=== PATIENT | female | born 1955 | race Caucasian/White ===

== ENCOUNTER 2021-11-06 08:43 | Emergency (ER) | payer MEDICARE, BC, SELFPAY ==
[2021-11-06 08:44] VITALS: BP 137/95; PULSE 111; RESP 20; TEMP 36.1; O2SAT 97; BMI 48.5
--- NOTE | 2021-11-06 09:00 | RAD_ITS ---
STUDY: X-RAY CHEST REASON FOR EXAM: Female, 66 years old. Rales right base and pleuritic pain TECHNIQUE: Single AP portable view of the chest. COMPARISON: None. FINDINGS: The lungs are clear and expanded. There is no demonstrated pleural abnormality. Normal size heart. Normal mediastinum and jessica. Normal visualized pulmonary arteries. Normal visualized aortic arch and descending thoracic aorta. Normal visualized thoracic spine. Normal visualized ribs, clavicles, and shoulders. There is no demonstrated abnormality of the visualized soft tissue structures of the upper abdomen. RAD/Chest 1 View (Portable) IMPRESSION: Normal x-ray examination of the chest. Electronically Signed: Andres Mora MD at 9:49 EST Tel , Service support ,
--- NOTE | 2021-11-06 09:00 | EKG12_ITS ---
Test Reason : R SIDEPAIN Blood Pressure : / mmHG Vent. Rate : 094 BPM Atrial Rate : 094 BPM P-R Int : 140 ms QRS Dur : 080 ms QT Int : 342 ms P-R-T Axes : 003 -28 -23 degrees QTc Int : 427 ms Normal sinus rhythm Left ventricular hypertrophy Nonspecific ST and T wave abnormality Abnormal ECG Confirmed by MARIA ELENA DIAMOND, SG ([id number]), metropolitan editor MARYSOL SINCLAIR ([id number]) on 11/08/2021 10:47:31 A M Referred By: JOSE Confirmed By:ERIC ARREDONDO MD
[2021-11-06 09:02] VITALS: PULSE 93; RESP 16; O2SAT 97
--- NOTE | 2021-11-06 09:02 | EX.ED.DYSGE1 ---
HPI History of Present Illness Chief Complaint: Other, Pain/Inj Detail of Chief Complaint: Right-sided pleuritic pain Informant: patient and spouse/S.O. Onset/Context/Timing Onset: Days (Onset 2 to 3 days ago) Context: Sudden Onset Timing: Continuous and Waxes and wanes Quality: Pain with breathing Location: Right costal margin midclavicular line to posterior axillary line Current Severity: Mild Maximum Severity: Moderate Worsened by: Breathing Relieved by: Nothing Associated Symptoms Associated Symptoms: Nothing Narrative Narrative: Patient is a 66-year-old woman who has not seen a physician in some time. Her BMI is 48.6. She does endorse intolerance to greasy and fried foods. She has had no abdominal surgery. She has no known medical problems. She denies history of VTE. She has no risk factors for VTE. She states has been immunized against influenza but not COVID-19. Patient states her symptoms started 2 to 3 days ago. She has pain which she localizes from the posterior axillary line to the mid anterior clavicular line. Pain is worse with breathing or movement. She denies cough. She denies rhinorrhea, congestion or postnasal drainage. Denies sore throat. Denies loss of taste or smell. She denies headache. She denies rash. There is no history of trauma. She denies dysuria, frequency, urgency or hematuria. She does report shortness of breath with walking and attributed to her weight. She states that is not a new symptom. Prior similar symptoms: No Recent Illness/Hospitalization: No PFSH PFSH Medical History (Updated 11/06/21 @ 11:[address] Mode Shields MD) Asthma Hypertension Medical History no medical history no medical history Home Medications rivaroxaban [Xarelto] 15 mg PO BID #42 tablet 11/06/21 [Rx Last Taken Unknown] rivaroxaban [Xarelto] 20 mg PO DAILY #30 tab 11/06/21 [Rx Last Taken Unknown] Allergy/AdvReac Type Severity Reaction Status Date / Time No Known Allergies Allergy Verified 11/06/21 08:46 Surgical History (Updated 11/06/21 @ 09:06 by Flora Mack) Hx of tubal ligation Surgical History no surgical history no surgical history (foot surgery for calcification) Social History household members: spouse Smoking Status: Never smoker alcohol intake: never substance use type: does not use ROS ROS ED Constitutional Constitutional ED: Denies chills, fever(s), subjective, sweats or weight loss Eyes Eyes: Denies blurry vision, change in vision or diplopia ENT ENT ED: Denies ear pain, rhinorrhea or sore throat Cardiovascular Cardiovascular: Denies chest pain, orthopnea, palpitations, paroxysmal nocturnal dyspnea or racing heartbeat Respiratory/Chest Respiratory/Chest: Reports dyspnea on exertion; Denies cough, dyspnea, orthopnea, paroxysmal nocturnal dyspnea or sputum Gastrointestinal Gastrointestinal: Reports abdominal pain; Denies constipation, diarrhea, melena, nausea or vomiting Genitourinary Genitourinary ED: Denies dysuria, hematuria or urinary frequency Musculoskeletal Musculoskeletal: Reports back pain; Denies arthralgias, myalgias or neck pain Neurologic Neurologic: Denies headache(s) or weakness Endocrine Endocrinology: Denies polydipsia, polyphagia or polyuria Hematologic/Lymphatic Hematologic/Lymphatic: Denies easy bruising EXAM Physical Exam Const Vital Signs: 11/06/21 08:44 11/06/21 09:02 Temperature 97.0 F L Temperature Source Temporal Pulse Rate 111 H 93 Respiratory Rate 20 H 16 Respiratory Effort Normal Non-Labored Respiratory Pattern Normal Blood Pressure 137/95 H Blood Pressure Mean 109 Pulse Ox 97 97 Oxygen Delivery Method Room Air Room Air Positive well nourished, well developed and obese General Appearance ED: well developed and other Patient appears uncomfortable and winces with deep breathing. She is tachypneic and moderate reveals tachycardia. ; Negative for cyanotic, diaphoretic, NAD or pallor Nutritional Appearance: obese HEENT Reports TM's clear and moist mucous membranes HEENT Narrative: Nares patent. Ears are normal. Negative for trauma or tenderness Tympanic Membrane ED: Yes TM's clear Eyes PERRL and EOMs intact bilaterally General Eye ED: Negative for pale conjunctiva or scleral icterus Neck no lymphadenopathy, supple and no JVD Neck Narrative: Trachea is midline. There is no inspiratory expiratory stridor. General: Negative for tenderness Chest Wall palpation of chest normal Resp No normal respiratory effort and No clear to auscultation bilaterally Effort and Inspection: pain with movement Auscultation: rales right lower Cardio regular rhythm, S1 normal heart sound, S2 normal heart sound and no murmurs Rate: tachycardic GI normal to inspection, nondistended, normoactive bowel sounds, non-tender and non-distended; Negative for hepatosplenomegaly Palpation: soft Back/Spine no CVA tenderness Thoracic Spine / Upper Back: Negative for thoracic spinal tenderness or paraspinal muscle tenderness Extremity normal to inspection Neuro CN's II-XII intact bilaterally Sensorium / Orientation: alert Psych mental status grossly normal Skin no rashes or lesions noted and no wounds General Skin Exam: Negative for jaundice or pallor MDM MDM MDM Narrative Medical decision making narrative: With pleuritic pain tachycardia tachypnea need to rule out pneumonia versus pulmonary embolus versus pleurisy from viral infection. Work-up included EKG to determine if there is evidence of right heart strain. Chest x-ray to rule out pneumonia. Appropriate blood work to assess liver function and lipase and she reports slashes endorses intolerance to greasy and fried foods. Location is not consistent with ureteral obstructing stone. Will medicate with Zofran and morphine. Lab Data Attestation: I reviewed the patient's lab results. Lab results narrative: CBC and differential are unremarkable. Renal function is normal. Patient has an elevated D-dimer with low to moderate pretest probability and a normal chest x-ray. Therefore CTA was obtained to rule out PE. Labs: Laboratory Results - last 24 hr 11/06/21 11/06/21 11/06/21 09:47 09:47 09:47 WBC 10.9 RBC 4.73 Hgb 14.5 Hct 44.0 MCV 93.0 MCH 30.7 MCHC 33.0 RDW Std Deviation 48.3 H RDW Coeff of Donna 14.2 Plt Count 215 MPV 9.9 Immature Gran % (Auto) 0.300 Neut % (Auto) 70.5 H Lymph % (Auto) 19.5 [place] % (Auto) 6.9 Eos % (Auto) 1.8 Baso % (Auto) 1.0 Absolute Neuts (auto) 7.7 Absolute Lymphs (auto) 2.13 Nucleated RBC % 0 D-Dimer Quant (PE/DVT) 3.72 H* Sodium 140 Potassium 3.7 Chloride 106 Carbon Dioxide 28.0 Anion Gap 6 BUN 22 H Creatinine 0.90 Estim Creat Clear Calc 59.79 Est GFR (MDRD) Af Amer 80 Est GFR (MDRD) Non-Af 66 BUN/Creatinine Ratio 24.4 H Glucose 113 H Lactic Acid Calcium 9.6 Total Bilirubin 0.80 AST 13 L ALT 30 Alkaline Phosphatase 89 Total Protein 7.8 Albumin 3.5 Globulin 4.3 H Albumin/Globulin Ratio 0.8 L Lipase 90 11/06/21 09:47 WBC RBC Hgb Hct MCV MCH MCHC RDW Std Deviation RDW Coeff of Donna Plt Count MPV Immature Gran % (Auto) Neut % (Auto) Lymph % (Auto) [place] % (Auto) Eos % (Auto) Baso % (Auto) Absolute Neuts (auto) Absolute Lymphs (auto) Nucleated RBC % D-Dimer Quant (PE/DVT) Sodium Potassium Chloride Carbon Dioxide Anion Gap BUN Creatinine Estim Creat Clear Calc Est GFR (MDRD) Af Amer Est GFR (MDRD) Non-Af BUN/Creatinine Ratio Glucose Lactic Acid 1.0 Calcium Total Bilirubin AST ALT Alkaline Phosphatase Total Protein Albumin Globulin Albumin/Globulin Ratio Lipase Radiography Chest X-Ray - ED: 1 View (Read by me at 0924. Limited inspiratory volume. No infiltrate or effusion noted. Cardiac silhouette and size normal. Prominent pulmonary vasculature on right. Osseous structures are unremarkable.) and Read by ED Physician Diagnostic Testing: Clinical Impression(s) from Imaging Studies Chest X-Ray 11/06/21 09:00 IMPRESSION: Normal x-ray examination of the chest. Electronically Signed: Andres Mora MD at 9:49 EST Tel , Service support , CTA of the chest reveals bilateral pulmonary embolus. Awaiting formal read to determine if there is evidence of right heart strain. After discussing patient's options of Lovenox with Coumadin and risk benefits of that combination versus Xarelto versus Eliquis. Patient and simultaneously states that the is present on Xarelto. She was given first dose of Xarelto in the emergency department and will be discharged to home with prescription for Eliquis if radiologist interpretation is not different from my own. EKG Initial EKG: Attestation: I personally reviewed and interpreted this EKG as follows: Interpretation: Sinus Rhythm (Sinus rhythm with a ventricular rate of 94. [place] interval is 140 ms. QS duration 80 ms. QT durations 142 ms. [place] is normal. There is evidence of nonspecific ST-T wave changes inferiorly. There is no acute ischemic changes noted.) Discharge Plan Triage Chief Complaint: Other, Pain/Inj ED Provider: Mode Shields Dx/Rx/DC Orders Clinical Impression: Bilateral pulmonary embolism Instructions: Embolism Pulmonary Dc Prescriptions: New Xarelto 15 MG tablet 15 mg PO BID Qty: 42 RF: 0 Xarelto 20 mg tablet 20 mg PO DAILY Qty: 30 RF: 0 Primary Care Provider: Care Physician,No Primary Referrals: Corey,Loyda, [NON-STAFF] - 1-2 Weeks (Patient with unprovoked pulmonary embolus. Patient was started on Xarelto. Patient has no primary care physician.) Care Physician,No Primary [Primary Care Provider] - Activity Restrictions/Additional Instructions: Since you are on a blood thinner you may bruise more easily or bleed more significantly. If you do bump your head even if there is no loss of conscious you will need to present to the emergency department for evaluation. Disposition Disposition: Home, Self Care
[2021-11-06] MEDS: 0.9% Normal Saline 1,000 ML 250 ML IV (09:43)
[2021-11-06] MEDS: Ondansetron 4 MG/2 ML Vial IV (09:43)
[2021-11-06] MEDS: HYDROmorphone 1 MG/ML Syringe 0.5 MG IV ×2 (09:43→10:32)
[2021-11-06 09:57] LABS: Absolute Lymphocyte Count 2.13 X10^3/uL (0.83-4.51); Absolute Neutrophil Count 7.7 X10^3/uL (2.0-7.7); Basophil# 0.11 X10^3/uL; Eosinophils% 1.8 % (0-5); Hemoglobin 14.5 g/dL (12.0-15.0); Lymphocyte # 2.13 X10^3/ul (0.83-4.51); Lymphocyte % 19.5 % (19-41); Mean Corpuscular Hgb 30.7 pg (27.0-32.0); Mean Platelet Vol. 9.9 fl (6.2-12.0); Monocyte# 0.75 X10^3/uL; Monocyte% 6.9 % (0-10); NRBC Flagged by Analyzer 0 % (0-5); Neutrophil # 7.69 X10^3/uL (2.7-7.7); Neutrophil % 70.5 % (47-70); Platelet Count 215 K/mm3 (150-450); RBC Distribution Width CV 14.2 % (11.6-14.6); RBC Distribution Width SD 48.3 fl (35.1-43.9); Red Blood Count 4.73 M/mm3 (4.2-5.4); White Blood Count 10.9 K/mm3 (4.4-11.0)
[2021-11-06 10:09] LABS: D-Dimer Quantitative (DVT/PE) 3.72 FEU/ug/m (0.27-0.49)
[2021-11-06 10:12] LABS: ALB/GLOB Ratio 0.8 RATIO (0.9-2.4); AST(SGOT) 13 U/L (15-37); Alanine Aminotransfer ALT/SGPT 30 U/L (13-56); Albumin, Serum 3.5 g/dL (3.2-5.0); Alkaline Phosphatase 89 U/L (45-117); Anion Gap 6 (5-15); BUN 22 mg/dL (7-18); BUN/Creat Ratio 24.4 RATIO (10-20); Calcium,Total 9.6 mg/dL (8.5-10.1); Chloride 106 mmol/L (98-107); EST Glomerular Filtration Rate 66 mL/min (>60); Est Glom Filt Rate - Afr Amer 80 mL/min (>60); Estimated Creatinine Clearance 59.79 ml/min; Globulin 4.3 g/dL (2.2-4.2); Glucose 113 mg/dL (74-106); Lipase 90 U/L (73-393); Potassium 3.7 mmol/L (3.5-5.1); Protein, Total 7.8 g/dL (6.4-8.2); Sodium Level 140 mmol/L (136-145)
--- NOTE | 2021-11-06 10:16 | CT_ITS ---
We are attempting to reach an attending provider to discuss findings. An addendum with communication details will be sent when the communication is complete. STUDY: CTA CHEST REASON FOR EXAM: Female, 66 years old. Suspect pulmonary embolus, pleuritic pain, elevate RADIATION DOSAGE (If Supplied By Facility): CTDIvol = ( 12.60 ) mGy, DLP = ( 468.22 ) mGycm TECHNIQUE: The examination was performed with the intravenous administration of IV 100mL Isovue-370. Post-processing of the angiographic images was performed, with multiplanar reformation and 3D reconstruction. Individualized dose optimization techniques were used for this CT. COMPARISON: Chest x-ray earlier today FINDINGS: Normal enhancement of the main pulmonary artery and right and left pulmonary arteries. Normal enhancement of the bilateral peripheral pulmonary arteries. There are multiple filling defects within segmental pulmonary arterial branches bilaterally particularly in the lower lobes consistent with bilateral pulmonary emboli. Normal thoracic aorta and visualized great vessels. There is no demonstrated aortic dissection. Normal heart and pericardium. Normal mediastinum. Normal hilar regions. Normal visualized trachea and bronchi. The lungs are well expanded. 4 mm noncalcified nodule in the periphery of the right middle lobe the lungs on image 86 and follow-up CT is recommended in 12 months document stability. Normal pleura. Normal chest wall structures. Normal osseous structures. Normal visualized upper abdomen. CT/CTA Chest W/WO Contrast IMPRESSION: Positive for bilateral segmental and subsegmental pulmonary emboli. Electronically Signed: Andres Mora MD at 11:30 EST Tel , Service support ,
[2021-11-06] MEDS: LORazepam 2 MG/ML Syringe 0.5 MG IV (10:32)
[2021-11-06] MEDS: Rivaroxaban 15 MG Tablet PO (11:41)
[2021-11-06 11:51] VITALS: BP 132/92; PULSE 78; RESP 18; O2SAT 94
--- NOTE | 2021-11-06 11:52 | ED.RN ---
REVIEWED D/C INSTRUCTIONS, FOLLOW UP CARE, PRESCRIPTIONS, AND S/S THAT WOULD WARRANT A RETURN TO THE ED WITH PT. PT VERBALIZED AN UNDERSTANDING AND DENIES FURTHER QUESTIONS FOR THIS RN. PT SKIN P/W/D, RESP EVEN AND UNLABORED, PT A&O X 3, NO DISTRESS NOTED. PT ASSISTED OUT OF ED IN WHEELCHAIR.
--- NOTE | 2021-11-06 12:46 | ED.RN ---
PT ASSISTED OUT OF ED IN WHEELCHAIR.
--- NOTE | 2021-11-06 13:50 | CM.ED ---
ROBERT Note ROBERT was advised that patient needs a coupon starter pack for Xarelto. had spoken to the pharmacist who said that insurance would not authorize the amount of Xarelto that patient needed. ROBERT provided MD with coupon starter and will follow up with patient's pharmacist. ROBERT remains available if needs arise. Donna العراقي
== END 2021-11-06 12:46 | disposition home or self-care (01) ==
PROVIDERS: Emergency Provider Emergency Medicine; Visit Provider Emergency Medicine
DX: I26.99 Other pulmonary embolism without acute cor pulmonale (principal); E66.9 Obesity, unspecified
CPT/HCPCS: 71045; 71275; 80053; 83605; 83690; 85025; 85379; 87426; 93005; 96361; 96374; 96375; 96376; 99285; J7030; Q9967; A4216; J2405